=== PATIENT | female | born 1975 | race African-American/Black ===

== ENCOUNTER 2016-10-15 22:44 | Emergency (ER) | payer OTHER ==
--- NOTE | ~2016-10-15 | CR63 ---
[facility] A Service of [facility] RADIOLOGY TEXT RESULTS PATIENT: GLENDA SANTIAGO LOCATION: [facility] : 79 UNIT #: [id number] AGE: [address]: Janki Molina SEX: F ORDER DR: [id number] [id number] [place], [place] [address] [id number] E MR#: [id number] Acc #: [id number] NAME: GLENDA SANTIAGO. : 1975 SEX: F STUDY DATE/TIME: 10/15/2016 23:41 UNIT: [facility] ROOM: STUDY DESCRIPTION: CR Chest 2 View Attending Physician: Janki Molina Pa-C Ordering Physician: Janki Molina Pa-C Primary Care Physician: No Primary Care Physician MEDICAL IMAGING REPORT This report is preliminary unless electronic signature is present EXAM Two-view chest 10/15/2016 INDICATIONS A 40-year-old female with chest pain, short of air, cough, aching symptoms 2 days. TECHNIQUE two-view chest compared with 04/25/2013 FINDINGS PA and lateral examination of the chest upright shows a good expansion of the parenchyma with a normal distribution of the pulmonary vascularity. There is no indication of congestion, effusion, infiltrate, tumor, or nodular density. The pleural reflections and diaphragmatic contours are normal. The cardiac silhouette and mediastinal anatomy is within normal limits. IMPRESSION Normal chest. Dictated by... Siddhartha Mcdonald M.D. THIS IS AN ELECTRONICALLY VERIFIED REPORT Siddhartha Mcdonald M.D. at 10/16/2016 10:10 PM Nessa TD: 10/16/2016 12:47 JOB #: [id number] MEDICAL IMAGING REPORT [facility] A Service [facility] RADIOLOGY TEXT RESULTS PATIENT: GLENDA SANTIAGO LOCATION: [facility] : 79 UNIT #: [id number] AGE: [address]: Janki Molina SEX: F ORDER DR: Page 1 of 1 COPY
--- NOTE | ~2016-10-15 | EKG ---
PATIENT: GLENDA SANTIAGO UNIT #: [id number] Ventricular Rate: 89 BPM Atrial Rate: 89 BPM P-R Interval: 162 ms QRS Duration: 84 ms Q-T Interval: 376 ms QTC Calculation(Bezet): 457 ms P [place]: 60 degrees Calculated R [place]: 32 degrees Calculated T [place]: 52 degrees Diagnosis Line: Normal sinus rhythm Diagnosis Line: Normal ECG Diagnosis Line: When compared with ECG of 04-JUL-2016 01:31, Diagnosis Line: No significant change was found Diagnosis Line: Confirmed by FARAZ MICHAUD MD ([id number]) on 10/18/2016 Diagnosis Line: 10:49:14 PM INTERPRETING MD: JASWANT RIVERA
[~2016-10-15 22:44] MED LIST: ALBUTEROL17 GM INH; ASPIRIN; ASPIRINEC; CORTISPORI10 ML OTIC AD; FIORICET 50-321 EACH PO; FLAGYL PO; HCTZ PO; K-DUR20 ME1 DOB; KCL PO; NAPROSYN500 MG PO; PREDNISONE PO; TUSSIONEX PENN473 ML PO; VASOTEC; VICODIN ES 7.51 EACH PO; ZITHROMAX1 G/PKT PO
[2016-10-15 22:51] LABS: BASOPHIL% 0.4 % (0-2.5); EOSINOPHIL# 0.1 X10e3 (0-0.7); EOSINOPHIL% 1.3 % (0.0-7.0); HEMATOCRIT 35.5 % (35.0-45.0); LYMPHOCYTE# 1.7 X10e3 (1.0-3.5); LYMPHOCYTE% 14.8 % (17.0-45.0); MEAN CORPUSCULAR HEMOGLOBIN 21.6 PG (28-34); MEAN CORPUSCULAR HGB CONC 30.9 g/dL (30-36); MEAN PLATELET VOLUME 8.4 FL (6.5-11.5); MONOCYTE# 0.9 X10e3 (0-1.0); MONOCYTE% 8.1 % (3.0-12.0); NEUTROPHIL# 8.7 X10e3 (1.5-7.1); NEUTROPHIL% 75.4 % (40-75); PLATELET COUNT 210 X10e3 (140-420); RED BLOOD COUNT 5.07 X10e (3.90-5.30); RED CELL DISTRIBUTION WIDTH 18.3 % (11.0-15.5); WHITE BLOOD COUNT 11.6 X10e3 (4.0-10.5)
[2016-10-15 22:53] LABS: DIFF IND NO
[2016-10-15 23:11] LABS: INFLUENZA A NEG (NEG); INFLUENZA B NEG (NEG)
[2016-10-15 23:15] LABS: POC - CKMB <1.0 ng/mL (0.0-7.9); POC - TROPONIN <0.05 ng/mL (<=0.05)
[2016-10-15 23:17] LABS: CALCIUM SERUM 8.7 mg/dL (8.4-10.2); CARBON DIOXIDE 23 mmol/L (22-31); CHLORIDE 105 mmol/L (100-111); CREATININE SERUM 0.8 mg/dL (0.6-1.4); GLOM FILT RATE Estimated 108.5 mL/min (>60); GLUCOSE FASTING 99 mg/dL (70-110); POTASSIUM 3.3 mmol/L (3.5-5.1); SODIUM 137 mmol/L (135-145)
[2016-10-15 23:19] LABS: BLOOD UREA NITROGEN <5 mg/dL (9-23); BUN/CREATININE RATIO 6.25
== END 2016-10-16 01:05 | disposition home or self-care (01) ==
LOC: CED 22:44
PROVIDERS: Physician Assistant Medical
DX: J06.9 Acute upper respiratory infection, unspecified (principal); I10 Essential (primary) hypertension; F17.210 Nicotine dependence, cigarettes, uncomplicated
CPT/HCPCS: 36415; 71020; 80048; 82553; 84484; 85025; 87651; 87804; 93005; 99284

== ENCOUNTER 2016-12-06 11:26 | Emergency (ER) | payer OTHER ==
--- NOTE | ~2016-12-06 | CR72 ---
[facility] A Service of [facility] RADIOLOGY TEXT RESULTS PATIENT: GLENDA SANTIAGO LOCATION: [facility] : 79 UNIT #: [id number] AGE: [address]: Sixto Burton MD SEX: F ORDER DR: [id number] [facility] [address] [place], [place] [address] [id number] E MR#: [id number] Acc #: [id number] NAME: GLENDA SANTIAGO. : 1975 SEX: F STUDY DATE/TIME: 12/06/2016 14:12 UNIT: [facility] ROOM: STUDY DESCRIPTION: CR Chest Single View Portable Attending Physician: Sixto Burton M.D. Ordering Physician: Sixto Burton M.D. Primary Care Physician: No Primary Care Physician MEDICAL IMAGING REPORT This report is preliminary unless electronic signature is present EXAM Portable chest 12/06/2016. HISTORY 41-year-old female patient with weakness, chest pain, elevated blood pressure. Patient is a smoker. Symptoms noted today. COMPARISON Chest 10/15/2016. FINDINGS A single AP portable chest demonstrates normal heart size. Hilar structures and mediastinal contours are preserved. Bilateral lungs are expanded and clear. Bony thorax is intact. IMPRESSION Negative and stable chest. Dictated by... Alexander Alas M.D. THIS IS AN ELECTRONICALLY VERIFIED REPORT Alexander Alas M.D. at 12/07/2016 8:08 AM Brittny TD: 12/06/2016 17:36 JOB #: [id number] MEDICAL IMAGING REPORT Page 1 of 1 COPY
--- NOTE | ~2016-12-06 | EKG ---
PATIENT: GLENDA SANTIAGO UNIT #: [id number] Ventricular Rate: 56 BPM Atrial Rate: 56 BPM P-R Interval: 192 ms QRS Duration: 82 ms Q-T Interval: 444 ms QTC Calculation(Bezet): 428 ms P [place]: 59 degrees Calculated R [place]: 37 degrees Calculated T [place]: 35 degrees Diagnosis Line: Sinus bradycardia Diagnosis Line: Otherwise normal ECG Diagnosis Line: When compared with ECG of 15-OCT-2016 21:54, Diagnosis Line: Vent. rate has decreased BY 33 BPM Diagnosis Line: Confirmed by ANAND GLASS MD ([id number]) on Diagnosis Line: 12/07/2016 1:29:48 PM INTERPRETING MD: MARIA LUISA RIVERA
[2016-12-06 12:11] LABS: BASOPHIL# 0.1 X10e3 (0-0.3); BASOPHIL% 0.9 % (0-2.5); EOSINOPHIL# 0.2 X10e3 (0-0.7); HEMATOCRIT 39.8 % (35.0-45.0); HEMOGLOBIN 12.3 gm/dL (12.0-16.0); LYMPHOCYTE# 1.8 X10e3 (1.0-3.5); LYMPHOCYTE% 20.9 % (17.0-45.0); MEAN CELL VOLUME 68.5 FL (83-96); MEAN CORPUSCULAR HEMOGLOBIN 21.1 PG (28-34); MEAN CORPUSCULAR HGB CONC 30.9 g/dL (30-36); MEAN PLATELET VOLUME 8.5 FL (6.5-11.5); MONOCYTE# 0.5 X10e3 (0-1.0); MONOCYTE% 5.8 % (3.0-12.0); NEUTROPHIL# 6.1 X10e3 (1.5-7.1); NEUTROPHIL% 70.4 % (40-75); PLATELET COUNT 224 X10e3 (140-420); RED BLOOD COUNT 5.82 X10e (3.90-5.30); RED CELL DISTRIBUTION WIDTH 17.6 % (11.0-15.5); WHITE BLOOD COUNT 8.7 X10e3 (4.0-10.5)
[2016-12-06 12:25] LABS: DIFF IND NO
[2016-12-06 12:38] LABS: ALBUMIN SERUM 3.9 g/dL (3.5-5.0); BILIRUBIN,TOTAL 0.6 mg/dL (0.2-2.0); BUN/CREATININE RATIO 7.77; CALCIUM SERUM 9.2 mg/dL (8.4-10.2); CREATININE SERUM 0.9 mg/dL (0.6-1.4); GLOM FILT RATE Estimated 93.4 mL/min (>60); POTASSIUM 3.8 mmol/L (3.5-5.1); PROTEIN TOTAL SERUM 7.2 g/dL (6.0-8.3)
[2016-12-06 13:36] LABS: URINE SOURCE CLEAN CATCH
[2016-12-06 13:48] LABS: URINE APPEARANCE CLEAR; URINE BILIRUBIN NEG (NEG); URINE BLOOD NEG (NEG); URINE COLOR YELLOW; URINE GLUCOSE NEG (NEG); URINE KETONE NEG (NEG); URINE LEUKOCYTE ESTERASE NEG (NEG); URINE NITRATE NEG (NEG); URINE PROTEIN NEG (NEG); URINE SPECIFIC GRAVITY 1.017 (1.003-1.035)
[2016-12-06 14:04] LABS: AMPHETAMINE NEG (NEG); BARBITURATES NEG (NEG); BENZODIAZEPINES POS (NEG); COCAINE POS (NEG); MARIJUANA POS (NEG); OPIATES NEG (NEG); TRICYCLIC ANTIDEPRESSANTS NEG (NEG); U METHADONE NEG (NEG)
[2016-12-06 14:08] LABS: CULTURE INDICATED? NO
[2016-12-06 14:18] LABS: POC - CKMB <1.0 ng/mL (0.0-7.9); POC - TROPONIN <0.05 ng/mL (<=0.05)
== END 2016-12-06 15:23 | disposition home or self-care (01) ==
LOC: CED 11:26
PROVIDERS: Emergency Medicine; Student in an Organized Health Care Education/Training Program
DX: R53.1 Weakness (principal); F14.10 Cocaine abuse, uncomplicated; F12.10 Cannabis abuse, uncomplicated; F19.10 Other psychoactive substance abuse, uncomplicated; I10 Essential (primary) hypertension; F17.200 Nicotine dependence, unspecified, uncomplicated
CPT/HCPCS: 71010; 80053; 80307; 81003; 82553; 84484; 85025; 93005; 99283